=== PATIENT | female | born 1970 | race Caucasian/White ===

== ENCOUNTER 2020-03-25 08:21 | Day surgery (SDC) | payer BC ==
--- NOTE | 2020-03-25 07:43 | HP ---
DATE OF SURGERY: 03/25/2020 HISTORY OF PRESENT ILLNESS: The patient is a 49 year old in need of a screening colonoscopy. PAST MEDICAL HISTORY: Denies any chronic illnesses. PAST SURGICAL HISTORY: She had hemorrhoids removed in the past. She had uterine ablation. She had upper endoscopy in the past. MEDICATIONS: Fish oil, multivitamin. ALLERGIES: NKDA. FAMILY HISTORY: Negative. SOCIAL HISTORY: Denies smoking, reports rare alcohol use. REVIEW OF SYSTEMS: Fourteen systems reviewed. Negative or noncontributory as above and per preadmission questionnaire. PHYSICAL EXAMINATION: GENERAL: No acute distress. HEENT: Sclerae nonicteric. NECK: No JVD. CHEST: Equal excursion, nonlabored breathing. CVS: Regular rate and rhythm. ABDOMEN: Soft, nondistended. EXTREMITIES: No cyanosis. NEURO: Alert, moving extremities grossly symmetrically. PSYCH: Appropriate mood and affect. IMPRESSION: Need for screening colonoscopy. I feel the patient is a candidate. General risk of bleeding or infection, risk of bowel injury or perforation possibly requiring open procedure, risk of missed or nondiagnosis or incomplete exam possibly requiring barium enema, other studies or procedures, general risk of anesthesia or sedation, risk of bowel prep but not limited to. Consent obtained, will proceed with outpatient screening colonoscopy.
[~2020-03-25 08:21] MED LIST: DIPRIVAN 200 MG/20 ML IV ONE
[2020-03-25] MEDS ORDERED: Lactated Ringers 1,000 ML IV ONE ×2 (08:42→10:51)
[2020-03-25] MEDS ORDERED: Lactated Ringers 1,000 ML IV SCH (09:00)
[2020-03-25 11:18] VITALS: O2SAT 100
[2020-03-25 11:32] VITALS: BP 113/64; PULSE 50
--- NOTE | 2020-03-26 08:25 | OP ---
SURGERY DATE/TIME: 03/25/2020 1013 PREOPERATIVE DIAGNOSIS: Screening colonoscopy. POSTOPERATIVE DIAGNOSES: 1) Small early polyps versus hyperplastic lesions transverse colon and rectum. 2) Small internal hemorrhoids. 3) Withdrawal time 10 minutes. 4) ASA Class 1. 5) Terminal ileum, ileocecal valve, appendiceal orifice photo documented. PROCEDURES: 1) Colonoscopy to terminal ileum, retrograde ileoscopy. 2) Hot biopsy polypectomy small early polyps versus hyperplastic lesion transverse colon x2. 3) Hot biopsy polypectomy small early polyps versus hyperplastic lesion rectosigmoid colon polyps x2. 4) Very tortuous colon. SURGEON: Dr. Pop Bojorquez. ANESTHESIA: MAC. ESTIMATED BLOOD LOSS: Minimal. INDICATIONS: As noted above. Risks and benefits explained in detail but not limited to and consent obtained. DESCRIPTION OF PROCEDURE AND FINDINGS: The patient is taken to the operating room. MAC anesthesia introduced. After official time out and no disagreement with planned procedure, digital rectal exam did not reveal any rectal masses. He did have some small internal and external hemorrhoids. Video colonoscope inserted and passed up through the tortuous sigmoid, descending, transverse and ascending colon. With external pressure by staff members and patient position on her back, the scope was able to be passed around to the cecum through the terminal ileum. Retrograde ileoscopy performed which was grossly unremarkable. Pictures were taken of the ileum. Pictures were taken of appendiceal orifice as well as the ileocecal valve. The scope was then carefully withdrawn over the next ten minutes. There was one small possibly more of an inflammatory polyp versus hyperplastic polyp in the transverse colon removed with hot biopsy forceps. A second smaller polyp was removed with hot biopsy forceps with brief bursts of cautery. Good hemostasis noted. Scope slowly and carefully withdrawn. There were no signs of any large polyps, masses or obstructing lesions. There were two small early polyps versus hyperplastic lesions in the rectum that were removed with hot biopsy forceps with brief bursts of cautery. Good hemostasis noted. Otherwise she had some small internal hemorrhoids. There were no signs of any large polyps, masses or obstructing lesions. Prep overall was good. Withdrawal time was about ten minutes. Findings discussed with her out in the waiting area. There were no immediate complications.
== END 2020-03-25 11:35 | disposition home or self-care (01) ==
LOC: SDC 08:21
PROVIDERS: ATTEND Surgery
DX: Z12.11 Encounter for screening for malignant neoplasm of colon (principal); K63.5 Polyp of colon; D12.8 Benign neoplasm of rectum; K64.8 Other hemorrhoids
CPT/HCPCS: 88305; J2704